=== PATIENT | female | born 1960 | race Caucasian/White ===

== ENCOUNTER 2022-02-16 23:30 | Observation (INO) ==
[2022-02-17 00:20] LABS: Basophils # 0.1 K/mcL (0.0-0.2); Basophils % 0.6 %; Eosinophils % 0.1 %; Hematocrit 52.1 % (35.3-44.9); Hemoglobin 15.5 g/dL (11.5-15.4); Lymphocytes # 2.1 K/mcL (0.6-4.6); Lymphocytes % 10.6 %; Mean Corpuscular HGB Conc 29.8 g/dL (31.6-35.5); Mean Corpuscular Hemoglobin 29.9 pg (28.0-33.3); Mean Corpuscular Volume 100.4 fL (83.0-100.0); Mean Platelet Volume 10.5 fL (9.4-12.4); Monocytes # 0.7 K/mcL (0.0-1.3); Monocytes % 3.7 %; Neutrophils # 16.7 K/mcL (1.6-8.9); Platelet Count 254 K/mcL (140-400); Red Blood Count 5.19 M/mcL (3.82-4.97); Red Cell Distribution Width 13.3 % (11.5-14.5); White Blood Count 19.9 K/mcL (4.3-11.1)
[2022-02-17 00:24] LABS: Prothrombin Time 11.4 Seconds (9.4-12.1)
[2022-02-17 00:27] LABS: Activated Partial Thrombo Time 32.4 Seconds (26.0-36.0)
[2022-02-17 00:37] LABS: Troponin I < 0.03 ng/mL (< 0.04)
[2022-02-17] MEDS ORDERED: Ondansetron 4 MG/2 ML VIAL IVP ONE (00:38)
[2022-02-17] MEDS ORDERED: Nitroglycerin 1 INCH/GM PACKET TP ONE (00:38)
[2022-02-17 00:50] LABS: BUN/Creatinine Ratio 30 (6-26); Blood Urea Nitrogen 24 mg/dL (8-23); Calcium 8.8 mg/dL (8.6-10.3); Carbon Dioxide 11 mEq/L (23-29); Chloride 99 mEq/L (98-107); Glucose 352 mg/dL (70-105); Osmolality,Calculated 300 (280-300); Potassium 5.5 mEq/L (3.5-5.1); Sodium 136 mEq/L (136-145); eGFR For African Americans > 60 (> 60); eGFR For Non-African Americans > 60 (> 60)
[2022-02-17] MEDS ORDERED: Calcium Gluconate 1gm/50mL 1 GM/50 ML BAG IVPB ONE (01:47)
[2022-02-17] MEDS ORDERED: *HR* Dextrose 50 % in Water (Syg) 50 ML SYRINGE IVP ONE (01:47)
[2022-02-17] MEDS ORDERED: Insulin Human Regular 10 UNIT in 0.9 % Sodium Chloride 10 ML IV ONE ×2 (01:47→08:09)
[2022-02-17] MEDS ORDERED: Ibuprofen 800 MG TABLET PO ONE (02:38)
[2022-02-17 03:05] LABS: Bilirubin,Urine Small (Negative); Blood,Urine Negative (Negative); Clarity,Urine Clear (Clear); Color,Urine Yellow (Yellow); Glucose,Urine (UA) 500 mg/dL (Normal); Ketones,Urine >=160 mg/dL (Negative); Leukocyte Esterase,Urine Negative (Negative); Nitrite,Urine Negative (Negative); Protein,Urine 30 mg/dL (Neg-Trace); Urobilinogen,Urine Normal (Normal)
[2022-02-17] MEDS ORDERED: Nitroglycerin 0.4 MG TAB.SUBL SL PRN (03:40)
[2022-02-17] MEDS ORDERED: Aspirin 325 MG TABLET PO ONE (03:40)
[2022-02-17 04:07] LABS: Amphetamine Screen,Urine Negative ng/mL (Cutoff=1000); Barbiturate Screen,Urine Negative ng/mL (Cutoff=200); Benzodiazepines Screen,Urine Negative ng/mL (Cutoff=200); Cannabinoid Screen,Urine Negative ng/mL (Cutoff = 50); Cocaine Screen,Urine Negative ng/mL (Cutoff= 300); Opiate Screen,Urine Negative ng/mL (Cutoff=300); Phencyclidine Screen,Urine Negative ng/mL (Cutoff=25)
[2022-02-17 04:08] LABS: Basophils # 0.1 K/mcL (0.0-0.2); Basophils % 0.3 %; Hematocrit 49.6 % (35.3-44.9); Hemoglobin 15.3 g/dL (11.5-15.4); Immature Granulocytes % 1.4 % (0-4); Lymphocytes # 1.7 K/mcL (0.6-4.6); Lymphocytes % 6.1 %; Mean Corpuscular HGB Conc 30.8 g/dL (31.6-35.5); Mean Corpuscular Hemoglobin 30.1 pg (28.0-33.3); Mean Corpuscular Volume 97.6 fL (83.0-100.0); Monocytes # 1.5 K/mcL (0.0-1.3); Monocytes % 5.3 %; Neutrophils # 24.1 K/mcL (1.6-8.9); Platelet Count 314 K/mcL (140-400); Red Blood Count 5.08 M/mcL (3.82-4.97); Red Cell Distribution Width 13.3 % (11.5-14.5); Segmented Neutrophils % 86.9 %; White Blood Count 27.7 K/mcL (4.3-11.1)
[2022-02-17 04:21] LABS: Prothrombin Time 11.2 Seconds (9.4-12.1)
[2022-02-17 04:46] LABS: Thyroid Stimulating Hormone 1.108 mcIU/mL (0.340-5.600)
[2022-02-17 07:26] VITALS: BP 125/67; PULSE 100; RESP 17; TEMP 98.7; O2SAT 93
[2022-02-17 07:27] LABS: Budding Yeast,Urine Few per hpf (None Seen); Granular Casts,Urine Few per lpf (None Seen); Mucus,Urine Few per lpf (None-Few); Squamous Epithelial Cell,Urine Few per hpf (None-Few); WBC,Urine 0-3 per hpf (0-3)
[2022-02-17 07:58] LABS: Alanine Aminotransferase 12 Units/L (7-52); Albumin 4.3 g/dL (3.5-5.7); Albumin/Globulin Ratio 1.5 (1.1-2.2); Alkaline Phosphatase 109 Units/L (34-104); Aspartate Amino Transferase 11 Units/L (13-39); BUN/Creatinine Ratio 28 (6-26); Bilirubin,Total 0.6 mg/dL (0.3-1.0); Blood Urea Nitrogen 28 mg/dL (8-23); Calcium 8.8 mg/dL (8.6-10.3); Carbon Dioxide 9 mEq/L (23-29); Chloride 100 mEq/L (98-107); Globulin 2.9 g/dL (2.4-3.5); Glucose 348 mg/dL (70-105); Magnesium 2.2 mg/dL (1.6-2.6); Osmolality,Calculated 303 (280-300); Phosphorous 4.7 mg/dL (2.7-4.5); Potassium 4.4 mEq/L (3.5-5.1); Sodium 137 mEq/L (136-145); Total Protein 7.2 g/dL (6.4-8.9); eGFR For African Americans > 60 (> 60); eGFR For Non-African Americans 57 (> 60)
[2022-02-17] MEDS ORDERED: *HR* Dextrose 50 % in Water (Syg) 50 ML SYRINGE IVP PRN (08:13)
[2022-02-17] MEDS ORDERED: 0.9 % Sodium Chloride 1,000 ML IVC SCH (08:15)
[2022-02-17] MEDS ORDERED: Ondansetron 4 MG/2 ML VIAL IVP PRN (08:18)
[2022-02-17] MEDS ORDERED: 0.9 % Sodium Chloride 1,000 ML IVC ONE (08:23)
[2022-02-17] MEDS ORDERED: 0.9 % Sodium Chloride 1,000 ML ONE (08:25)
[2022-02-17] MEDS ORDERED: Sodium Bicarbonate 50 MEQ in 0.45 % Sodium Chloride 1,000 ML IVC SCH (08:30)
[2022-02-17 08:53] LABS: ABG Base Excess -20 mEq/L (-2 to 3); ABG HCO3 6 mEq/L (21-27); ABG Oxygen Saturation 93 % (95-98); ABG PCO2 18 mmHg (35-45); ABG PH 7.15 pH Units (7.32-7.45); ABG PO2 85 mmHg (85-104); ABG TCO2 7 mEq/L (20-26)
[2022-02-17] MEDS ORDERED: levoFLOXacin 750 MG/150 ML 750 MG/150 ML BAG IVPB SCH (09:00)
[2022-02-17] MEDS ORDERED: cefTRIAXone 2,000 MG in 0.9 % Sodium Chloride Mini Bag 100 ML IVPB SCH (09:00)
[2022-02-17 09:16] LABS: Ferritin 154 ng/mL (10-120)
[2022-02-17 09:24] LABS: Platelet Estimate Normal (Normal)
[2022-02-17 09:58] LABS: VBG HCO3 6 mEq/L (21-27); VBG PCO2 24 mmHg (41-51); VBG PH 7.01 pH Units (7.32-7.42); VBG PO2 54 mmHg (25-50)
[2022-02-17 10:18] LABS: BUN/Creatinine Ratio 27 (6-26); Blood Urea Nitrogen 29 mg/dL (8-23); Calcium 8.4 mg/dL (8.6-10.3); Carbon Dioxide 7 mEq/L (23-29); Chloride 104 mEq/L (98-107); Glucose 348 mg/dL (70-105); Osmolality,Calculated 308 (280-300); Sodium 139 mEq/L (136-145); eGFR For African Americans > 60 (> 60); eGFR For Non-African Americans 53 (> 60)
[2022-02-17 10:35] LABS: Folate > 22.3 ng/mL (3.0-16.0); Vitamin B12 242 pg/mL (250-1100)
[2022-02-17 13:21] LABS: Estimated Average Glucose 214 mg/dl; Hemoglobin A1C 9.1 %
[2022-02-17] MEDS ORDERED: Piperacillin/Tazobactam 3.375 GM in 0.9 % Sodium Chloride Mini Bag 100 ML IVPB SCH (16:00)
[2022-02-18] MEDS ORDERED: Aspirin 81 MG TAB.CHEW PO SCH (09:00)
== END 2022-02-17 10:58 | disposition short-term general hospital (02) ==
LOC: INPPIK 23:30 → EMEROOPIK 23:30 → INPPIK 02-17 02:53
PROVIDERS: ADMIT Internal Medicine; ATTEND Family Medicine

== ENCOUNTER 2022-02-22 15:29 | Observation (INO) ==
[2022-02-22] MEDS ORDERED: Insulin Regular, Human 100 UNIT/ML SUBQ ONE (15:57)
[2022-02-22] MEDS ORDERED: 0.9 % Sodium Chloride 1,000 ML IVC ONE (15:57)
[2022-02-22 16:01] LABS: Basophils % 0.4 %; Eosinophils # 0.1 K/mcL (0.0-0.6); Eosinophils % 1.1 %; Hematocrit 42.3 % (35.3-44.9); Hemoglobin 13.7 g/dL (11.5-15.4); Immature Granulocytes % 0.5 % (0-4); Lymphocytes # 2.5 K/mcL (0.6-4.6); Lymphocytes % 24.5 %; Mean Corpuscular HGB Conc 32.4 g/dL (31.6-35.5); Mean Corpuscular Hemoglobin 30.2 pg (28.0-33.3); Mean Corpuscular Volume 93.2 fL (83.0-100.0); Mean Platelet Volume 10.5 fL (9.4-12.4); Monocytes # 0.6 K/mcL (0.0-1.3); Monocytes % 5.9 %; Neutrophils # 6.8 K/mcL (1.6-8.9); Platelet Count 196 K/mcL (140-400); Red Blood Count 4.54 M/mcL (3.82-4.97); Red Cell Distribution Width 13.2 % (11.5-14.5); Segmented Neutrophils % 67.6 %
[2022-02-22] MEDS: 0.9 % Sodium Chloride 1,000 ML IVC SCH (16:03)
[2022-02-22 16:09] LABS: INR 0.9; Prothrombin Time 10.5 Seconds (9.4-12.1)
[2022-02-22 16:11] LABS: Activated Partial Thrombo Time 30.6 Seconds (26.0-36.0)
[2022-02-22 16:20] LABS: Alanine Aminotransferase 9 Units/L (7-52); Albumin 3.8 g/dL (3.5-5.7); Albumin/Globulin Ratio 1.5 (1.1-2.2); Alkaline Phosphatase 112 Units/L (34-104); Aspartate Amino Transferase 8 Units/L (13-39); BUN/Creatinine Ratio 22 (6-26); Bilirubin,Total 0.5 mg/dL (0.3-1.0); Blood Urea Nitrogen 19 mg/dL (8-23); Calcium 8.7 mg/dL (8.6-10.3); Carbon Dioxide 20 mEq/L (23-29); Chloride 97 mEq/L (98-107); Creatine Kinase 20 Units/L (30-223); Globulin 2.6 g/dL (2.4-3.5); Glucose 427 mg/dL (70-105); Magnesium 1.9 mg/dL (1.6-2.6); Osmolality,Calculated 295 (280-300); Potassium 3.8 mEq/L (3.5-5.1); Sodium 132 mEq/L (136-145); Total Protein 6.4 g/dL (6.4-8.9); Troponin I < 0.03 ng/mL (< 0.04); eGFR For African Americans > 60 (> 60); eGFR For Non-African Americans > 60 (> 60)
[2022-02-22 16:20] LABS: ABG Base Excess -4 mEq/L (-2 to 3); ABG HCO3 20 mEq/L (21-27); ABG Oxygen Saturation 91 % (95-98); ABG PCO2 31 mmHg (35-45); ABG PH 7.41 pH Units (7.32-7.45); ABG PO2 60 mmHg (85-104); ABG TCO2 21 mEq/L (20-26)
[2022-02-22 16:33] LABS: Thyroid Stimulating Hormone 2.552 mcIU/mL (0.340-5.600)
[2022-02-22] MEDS ORDERED: Acetaminophen 325 MG TABLET PO PRN (17:07)
[2022-02-22] MEDS ORDERED: Ondansetron 4 MG/2 ML VIAL IVP PRN (17:07)
[2022-02-22] MEDS ORDERED: Naloxone 0.4 MG/ML INJ IVP PRN (17:07)
[2022-02-22] MEDS ORDERED: MOM Conc 10 ML UD.LIQ PO PRN (17:07)
[2022-02-22] MEDS ORDERED: Mag Hydrox/Al Hydrox/Simeth 30 ML UDC PO PRN (17:07)
[2022-02-22] MEDS ORDERED: Melatonin 3 MG TABLET PO PRN (17:07)
[2022-02-22] MEDS ORDERED: D5% in Water 1,000 ML IVC PRN (17:13)
[2022-02-22] MEDS ORDERED: Dextrose 4 GM Chewable Tablets PO PRN ×2 (17:13)
[2022-02-22] MEDS ORDERED: *HR* Dextrose 50 % in Water (Syg) 50 ML SYRINGE IVP PRN (17:13)
[2022-02-22 17:18] LABS: Bilirubin,Urine Negative (Negative); Blood,Urine Negative (Negative); Clarity,Urine Clear (Clear); Color,Urine Yellow (Yellow); Glucose,Urine (UA) >=1000 mg/dL (Normal); Ketones,Urine Negative (Negative); Leukocyte Esterase,Urine Negative (Negative); Nitrite,Urine Negative (Negative); Protein,Urine Negative (Neg-Trace); Specific Gravity,Urine <= 1.005 (1.010-1.025); Urobilinogen,Urine Normal (Normal)
[2022-02-22 17:23] LABS: RBC,Urine 0-3 per hpf (0-3); Squamous Epithelial Cell,Urine Few per hpf (None-Few)
[2022-02-22] MEDS ORDERED: Albuterol 2.5 MG/3 ML NEBULIZER IH PRN (17:51)
[2022-02-22] MEDS: Cefdinir 300 MG CAPSULE PO SCH (20:49)
[2022-02-22 22:08] LABS: BUN/Creatinine Ratio 25 (6-26); Blood Urea Nitrogen 16 mg/dL (8-23); Calcium 8.5 mg/dL (8.6-10.3); Carbon Dioxide 25 mEq/L (23-29); Chloride 107 mEq/L (98-107); Glucose 72 mg/dL (70-105); Osmolality,Calculated 290 (280-300); Potassium 3.3 mEq/L (3.5-5.1); Sodium 140 mEq/L (136-145); eGFR For African Americans > 60 (> 60); eGFR For Non-African Americans > 60 (> 60)
[2022-02-22] MEDS: Insulin LISPRO 300 UNITS/3 ML VIAL SUBQ SCH ×2 (23:17→23:18)
[2022-02-23] MEDS: 0.9 % Sodium Chloride 1,000 ML IVC SCH ×3 (00:36→16:07)
[2022-02-23] MEDS: Insulin LISPRO 300 UNITS/3 ML VIAL SUBQ SCH ×5 (01:35→17:12)
[2022-02-23 07:31] LABS: Basophils % 0.3 %; Eosinophils # 0.2 K/mcL (0.0-0.6); Hematocrit 39.7 % (35.3-44.9); Hemoglobin 12.7 g/dL (11.5-15.4); Immature Granulocytes % 0.4 % (0-4); Lymphocytes # 2.7 K/mcL (0.6-4.6); Lymphocytes % 28.3 %; Mean Corpuscular Volume 93.6 fL (83.0-100.0); Mean Platelet Volume 10.4 fL (9.4-12.4); Monocytes # 0.5 K/mcL (0.0-1.3); Monocytes % 5.6 %; Platelet Count 156 K/mcL (140-400); Red Blood Count 4.24 M/mcL (3.82-4.97); Red Cell Distribution Width 13.2 % (11.5-14.5); Segmented Neutrophils % 63.4 %; White Blood Count 9.5 K/mcL (4.3-11.1)
[2022-02-23] MEDS: Cefdinir 300 MG CAPSULE PO SCH (07:36)
[2022-02-23 07:54] LABS: BUN/Creatinine Ratio 27 (6-26); Blood Urea Nitrogen 13 mg/dL (8-23); Calcium 7.8 mg/dL (8.6-10.3); Carbon Dioxide 27 mEq/L (23-29); Chloride 106 mEq/L (98-107); Glucose 211 mg/dL (70-105); Osmolality,Calculated 296 (280-300); Potassium 3.3 mEq/L (3.5-5.1); Sodium 140 mEq/L (136-145); eGFR For African Americans > 60 (> 60); eGFR For Non-African Americans > 60 (> 60)
[2022-02-23 07:55] LABS: Troponin I < 0.03 ng/mL (< 0.04)
[2022-02-23] MEDS ORDERED: Insulin DETEMIR 100 UNIT/ML X5UNITS SUBQ SCH ×2 (09:00)
[2022-02-23] MEDS ORDERED: Azithromycin 250 MG TABLET PO SCH (09:00)
[2022-02-23] MEDS: *HR* Enoxaparin 40 MG/0.4 ML SYRINGE SQ SCH (09:17)
[2022-02-23] MEDS: Loratadine 10 MG TABLET PO SCH (09:18)
[2022-02-23] MEDS: Topiramate 100 MG TABLET PO SCH (09:18)
[2022-02-23] MEDS: (Empagliflozin [Jardiance] 25 MG Tablet) PO SCH (09:18)
[2022-02-23] MEDS: Metoprolol XL (24 HR) Succ 25 MG TAB.ER.24H PO SCH (09:18)
[2022-02-23] MEDS: FLUoxetine 20 MG CAPSULE PO SCH (09:18)
[2022-02-23] MEDS ORDERED: Insulin LISPRO 300 UNITS/3 ML VIAL SUBQ SCH (21:00)
[2022-02-24] MEDS: *HR* Enoxaparin 40 MG/0.4 ML SYRINGE SQ SCH (06:01)
[2022-02-24 07:15] LABS: BUN/Creatinine Ratio 23 (6-26); Blood Urea Nitrogen 11 mg/dL (8-23); Calcium 8.3 mg/dL (8.6-10.3); Carbon Dioxide 23 mEq/L (23-29); Chloride 102 mEq/L (98-107); Glucose 363 mg/dL (70-105); Osmolality,Calculated 294 (280-300); Potassium 4.2 mEq/L (3.5-5.1); Sodium 135 mEq/L (136-145); eGFR For African Americans > 60 (> 60); eGFR For Non-African Americans > 60 (> 60)
[2022-02-24] MEDS: Topiramate 100 MG TABLET PO SCH (09:38)
[2022-02-24] MEDS: Metoprolol XL (24 HR) Succ 25 MG TAB.ER.24H PO SCH (09:39)
[2022-02-24] MEDS: Loratadine 10 MG TABLET PO SCH (09:39)
[2022-02-24] MEDS: FLUoxetine 20 MG CAPSULE PO SCH (09:39)
[2022-02-24] MEDS: Insulin LISPRO 300 UNITS/3 ML VIAL SUBQ SCH ×4 (10:01→21:33)
[2022-02-24] MEDS: Insulin DETEMIR 100 UNIT/ML per UNIT SUBQ SCH ×2 (10:03→21:30)
[2022-02-24] MEDS: (Empagliflozin [Jardiance] 25 MG Tablet) PO SCH (10:34)
[2022-02-24] MEDS: Nicotine 7 MG PATCH.TD24 TD SCH (21:33)
[2022-02-25] MEDS: *HR* Enoxaparin 40 MG/0.4 ML SYRINGE SQ SCH (06:12)
[2022-02-25 07:21] VITALS: RESP 16
[2022-02-25] MEDS: FLUoxetine 20 MG CAPSULE PO SCH (07:46)
[2022-02-25] MEDS: Metoprolol XL (24 HR) Succ 25 MG TAB.ER.24H PO SCH (07:47)
[2022-02-25] MEDS: Topiramate 100 MG TABLET PO SCH (07:47)
[2022-02-25] MEDS: Nicotine 7 MG PATCH.TD24 TD SCH (07:48)
[2022-02-25] MEDS: Insulin LISPRO 300 UNITS/3 ML VIAL SUBQ SCH ×4 (07:48→20:54)
[2022-02-25] MEDS: Loratadine 10 MG TABLET PO SCH (07:48)
[2022-02-25] MEDS: Insulin DETEMIR 100 UNIT/ML per UNIT SUBQ SCH ×2 (07:49→22:11)
[2022-02-25] MEDS: (Empagliflozin [Jardiance] 25 MG Tablet) PO SCH (07:50)
[2022-02-25 16:38] LABS: Influenza A PCR Negative (Negative); Influenza B PCR Negative (Negative); Resp. Syncytial Virus PCR Negative (Negative); SARS-CoV-2 by PCR (In House) Negative (Negative)
[2022-02-25 21:39] VITALS: BP 154/94; PULSE 85; TEMP 98.2; O2SAT 94
== END 2022-02-25 23:17 | disposition home health service (06) ==
LOC: EMEROOPIK 15:29 → INPPIK 15:29
PROVIDERS: ADMIT Family Medicine; ATTEND Family Medicine